=== PATIENT | female | born 1985 | race Two or more races ===

== ENCOUNTER 2019-09-19 19:38 | Emergency (ER) | payer MEDICAID, OTHER ==
[~2019-09-19] VITALS: Ht 149.9 cm; Wt 41.8 kg
[2019-09-19 21:46] VITALS: BP 115/76
== END 2019-09-19 22:11 | disposition home or self-care (01) ==
LOC: ER 19:38
DX: S61.212A Laceration without foreign body of right middle finger without damage to nail, initial encounter (principal); W26.0XXA Contact with knife, initial encounter; Y93.G1 Activity, food preparation and clean up; Y92.89 Other specified places as the place of occurrence of the external cause; Y99.8 Other external cause status
CPT/HCPCS: 12001

== ENCOUNTER 2021-01-29 15:12 | Emergency (ER) | payer MEDICAID ==
[~2021-01-29] VITALS: Ht 149.9 cm; Wt 45.4 kg
[2021-01-29 16:08] VITALS: BP 137/72
== END 2021-01-29 18:09 | disposition home or self-care (01) ==
LOC: ER 15:12
DX: S01.311A Laceration without foreign body of right ear, initial encounter (principal); F17.210 Nicotine dependence, cigarettes, uncomplicated; W22.8XXA Striking against or struck by other objects, initial encounter; Y93.89 Activity, other specified; Y92.89 Other specified places as the place of occurrence of the external cause; Y99.8 Other external cause status